=== PATIENT | female | born 1995 | race Caucasian/White ===

== ENCOUNTER 2017-06-12 17:12 | Emergency (ER) | payer BC ==
[~2017-06-12] VITALS: Ht 170.2 cm; Wt 54.5 kg
[~2017-06-12 17:12] MED LIST: CEPH500C5 PO
[2017-06-12 17:17] VITALS: BP 120/86
[2017-06-13] MEDS ORDERED: ACET-3068 PO (13:49)
[2017-06-13] MEDS ORDERED: SULF1TAB49 PO (13:49)
== END 2017-06-12 20:14 | disposition left against medical advice (07) ==
LOC: ER 17:13
DX: R50.9 Fever, unspecified (principal); R07.9 Chest pain, unspecified; Z53.21 Procedure and treatment not carried out due to patient leaving prior to being seen by health care provider

== ENCOUNTER 2017-06-13 10:26 | Emergency (ER) | payer BC ==
[~2017-06-13] VITALS: Ht 170.2 cm; Wt 53.0 kg
[2017-06-13] MEDS ORDERED: normal saline 1000ML IV soln IVB ONE ×2 (11:50)
[2017-06-13] MEDS ORDERED: oxyCODONE IR 5mg (immed. release) tablet PO ONE (11:50)
[2017-06-13] MEDS ORDERED: cefTRIAXone 1g/NS 100ml IVPB 100 ML IV ONE (11:55)
[2017-06-13 12:08] LABS: BASOPHILS % (AUTO) 0.4 % (0-1); EOSINOPHILS # (AUTO) 0.1 X10'3 (0-0.9); EOSINOPHILS % (AUTO) 1.2 % (0-6); HEMATOCRIT 38.8 % (35.0-45.0); HEMOGLOBIN 13.3 g/dl (12.0-16.0); LYMPHOCYTES # (AUTO) 3.1 X10'3 (1.1-4.8); LYMPHOCYTES % (AUTO) 53.2 % (21-51); MEAN CORPUSCULAR HEMOGLOBIN 29.9 PG (27.0-31.0); MEAN CORPUSCULAR HGB CONC 34.3 % (33.0-36.5); MEAN CORPUSCULAR VOLUME 87.3 FL (78-98); MEAN PLATELET VOLUME 7.8 FL (7.4-10.4); MONOCYTES # (AUTO) 0.4 X10'3 (0-0.9); NEUTROPHILS # (AUTO) 2.2 X10'3 (1.8-7.7); NEUTROPHILS % (AUTO) 38.2 % (42-75); PLATELET COUNT 174 X10'3 (140-440); RED BLOOD COUNT 4.45 X10'6 (4.20-5.60); RED CELL DISTRIBUTION WIDTH 15.7 % (11.5-14.5); WHITE BLOOD COUNT 5.8 X10'3 (4.5-11.0)
[2017-06-13 12:21] LABS: ALANINE AMINOTRANSFERASE 20 U/L (12-78); ALBUMIN 3.2 G/DL (3.4-5.0); ALBUMIN/GLOBULIN RATIO 0.8 (1.1-1.5); ALKALINE PHOSPHATASE 50 IU/L (46-116); ANION GAP 5 (8-16); ASPARTATE AMINO TRANSFERASE 14 U/L (10-37); BILIRUBIN,TOTAL 0.3 MG/DL (0.1-1.0); BLOOD UREA NITROGEN 16 MG/DL (7-18); CALCIUM 9.1 MG/DL (8.5-10.1); CHLORIDE 107 MMOL/L (99-107); CREATININE 0.64 MG/DL (0.40-0.90); GLUCOSE 90 MG/DL (70-104); POTASSIUM 3.4 MMOL/L (3.5-5.1); SODIUM 142 MMOL/L (135-145); TOTAL CARBON DIOXIDE 29.8 MMOL/L (24-32); TOTAL PROTEIN 7.2 G/DL (6.4-8.2); eGFR > 90 ML/MIN
[2017-06-13 12:42] LABS: BETA HCG,QUANTITATIVE 2483 mIU/ml
[2017-06-13] MEDS ORDERED: ondansetron/PF 4mg/2ml inj IV ONE (13:15)
[2017-06-13] MEDS ORDERED: SULF1TAB49 PO (13:49)
[2017-06-13] MEDS ORDERED: ACET-3068 PO (13:49)
[2017-06-13 14:14] VITALS: BP 121/68
== END 2017-06-13 14:17 | disposition home or self-care (01) ==
LOC: ER 10:27
DX: O03.9 Complete or unspecified spontaneous abortion without complication (principal); L03.113 Cellulitis of right upper limb; F12.10 Cannabis abuse, uncomplicated; Z98.890 Other specified postprocedural states; Z88.0 Allergy status to penicillin; Z88.8 Allergy status to other drugs, medicaments and biological substances; Z86.14 Personal history of Methicillin resistant Staphylococcus aureus infection
CPT/HCPCS: 36415; 76856; 80053; 84702; 85025; 86900; 86901; 96361; 96365; 96375; 99285; J0696; J2405; J7030

== ENCOUNTER 2017-08-01 21:02 | Emergency (ER) | payer BC ==
[~2017-08-01] VITALS: Ht 170.2 cm; Wt 54.0 kg
[2017-08-01 21:05] VITALS: BP 124/67
[2017-08-01 21:32] LABS: BASOPHILS % (AUTO) 0.3 % (0-1); EOSINOPHILS # (AUTO) 0.1 X10'3 (0-0.9); EOSINOPHILS % (AUTO) 1.4 % (0-6); HEMATOCRIT 39.9 % (35.0-45.0); LYMPHOCYTES # (AUTO) 3.8 X10'3 (1.1-4.8); LYMPHOCYTES % (AUTO) 44.9 % (21-51); MEAN CORPUSCULAR HEMOGLOBIN 31.5 PG (27.0-31.0); MEAN CORPUSCULAR VOLUME 90.1 FL (78-98); MONOCYTES # (AUTO) 0.6 X10'3 (0-0.9); MONOCYTES % (AUTO) 7.3 % (2-12); NEUTROPHILS # (AUTO) 3.8 X10'3 (1.8-7.7); NEUTROPHILS % (AUTO) 46.1 % (42-75); PLATELET COUNT 244 X10'3 (140-440); RED BLOOD COUNT 4.43 X10'6 (4.20-5.60); RED CELL DISTRIBUTION WIDTH 13.4 % (11.5-14.5); WHITE BLOOD COUNT 8.4 X10'3 (4.5-11.0)
[2017-08-01 21:55] LABS: ALANINE AMINOTRANSFERASE 21 U/L (12-78); ALBUMIN 4.2 G/DL (3.4-5.0); ALBUMIN/GLOBULIN RATIO 1.1 (1.1-1.5); ALKALINE PHOSPHATASE 69 IU/L (46-116); ANION GAP 10 (8-16); ASPARTATE AMINO TRANSFERASE 10 U/L (10-37); BILIRUBIN,TOTAL 0.7 MG/DL (0.1-1.0); BLOOD UREA NITROGEN 23 MG/DL (7-18); BUN/CREATININE RATIO 23.5 (6.6-38.0); CALCIUM 9.3 MG/DL (8.5-10.1); CHLORIDE 105 MMOL/L (99-107); CREATININE 0.98 MG/DL (0.40-0.90); ETHANOL < 0.010 GM/DL (0.0-0.010); GLUCOSE 101 MG/DL (70-104); POTASSIUM 3.5 MMOL/L (3.5-5.1); SODIUM 141 MMOL/L (135-145); TOTAL CARBON DIOXIDE 25.6 MMOL/L (24-32); eGFR 70 ML/MIN
[2017-08-01 22:33] LABS: CLARITY,URINE SLIGHTLY CLOUDY (Clear); GLUCOSE, URINE NEGATIVE (Neg); KETONES,URINE TRACE mg/dl (Neg); LEUKOCYTE ESTERASE ,URINE NEGATIVE (Neg); NITRITES, URINE NEGATIVE (Neg); OCCULT BLOOD,URINE TRACE-INTACT (Neg); PROTEIN,URINE 30 mg/dl (Neg); URINE HCG NEGATIVE (NEG)
[2017-08-01 22:36] LABS: COLOR,URINE DARK YELLOW (Yellow); UA COLLECTION TYPE CLN CATCH MIDSTREAM
[2017-08-01 22:40] LABS: BACTERIA,URINE 3+ /HPF (Neg); CAL OXALATE CRYSTALS 1+ /HPF (NEGATIVE); MUCUS STRANDS MANY /LPF (Neg); RBC,URINE 0-2 /HPF (0-2); SQUAMOUS EPITHELIAL CELL,UR MANY /LPF (FEW); WBC,URINE 0-4 /HPF (0-4)
[2017-08-01 22:44] LABS: URINE AMPHETAMINE SCREEN POSITIVE (Neg); URINE BARBITUATE SCREEN NEGATIVE (Neg); URINE BENZODIAZEPINES SCREEN NEGATIVE (Neg); URINE CANNABINOID SCREEN POSITIVE (Neg); URINE COCAINE SCREEN NEGATIVE (Neg); URINE METHADONE SCREEN NEGATIVE (Neg); URINE OPIATE SCREEN NEGATIVE (Neg); URINE PHENCYCLIDINE SCREEN NEGATIVE (Neg)
== END 2017-08-01 22:56 | disposition home or self-care (01) ==
LOC: ER 21:03
DX: B34.9 Viral infection, unspecified (principal); E86.0 Dehydration; F12.10 Cannabis abuse, uncomplicated; F15.10 Other stimulant abuse, uncomplicated; Z86.19 Personal history of other infectious and parasitic diseases; Z88.0 Allergy status to penicillin; Z79.899 Other long term (current) drug therapy
CPT/HCPCS: 36415; 80053; 80305; 80320; 81001; 81025; 84439; 84443; 85025; 99284

== ENCOUNTER 2018-06-15 23:35 | Emergency (ER) | payer BC, MEDICAID ==
[~2018-06-15] VITALS: Ht 170.2 cm; Wt 52.0 kg
[2018-06-15 23:42] VITALS: BP 145/91
== END 2018-06-16 00:27 | disposition left against medical advice (07) ==
LOC: ER 23:36
DX: J20.9 Acute bronchitis, unspecified (principal); F12.90 Cannabis use, unspecified, uncomplicated; Z86.14 Personal history of Methicillin resistant Staphylococcus aureus infection; Z98.890 Other specified postprocedural states; Z88.0 Allergy status to penicillin; Z88.1 Allergy status to other antibiotic agents; Z88.8 Allergy status to other drugs, medicaments and biological substances
CPT/HCPCS: 99281

== ENCOUNTER 2018-06-18 00:21 | Emergency (ER) | payer MEDICAID ==
[~2018-06-18] VITALS: Ht 170.2 cm; Wt 52.3 kg
[2018-06-18] MEDS ORDERED: acetaminophen 325mg tablet PO ONE (00:45)
[2018-06-18] MEDS ORDERED: normal saline 1000ML IV soln IVB ONE (00:45)
[2018-06-18] MEDS ORDERED: ketorolac trometh. 30mg/ml inj. IV ONE (00:45)
[2018-06-18] MEDS ORDERED: ondansetron/PF 4mg/2ml inj IV ONE (00:45)
[2018-06-18 02:03] LABS: ALANINE AMINOTRANSFERASE 21 U/L (12-78); ALBUMIN 3.2 G/DL (3.4-5.0); ALBUMIN/GLOBULIN RATIO 0.9 (1.1-1.5); ALKALINE PHOSPHATASE 58 IU/L (46-116); ANION GAP 11 (8-16); ASPARTATE AMINO TRANSFERASE 18 U/L (10-37); BILIRUBIN,TOTAL 0.1 MG/DL (0.1-1.0); BLOOD UREA NITROGEN 11 MG/DL (7-18); BUN/CREATININE RATIO 15.3 (6.6-38.0); CALCIUM 7.4 MG/DL (8.5-10.1); CHLORIDE 108 MMOL/L (99-107); CREATININE 0.72 MG/DL (0.40-0.90); GLUCOSE 84 MG/DL (70-104); SODIUM 142 MMOL/L (135-145); TOTAL CARBON DIOXIDE 23.2 MMOL/L (24-32); TOTAL PROTEIN 6.7 G/DL (6.4-8.2); eGFR > 90 ML/MIN
[2018-06-18 02:09] LABS: BASOPHILS % (AUTO) 0.5 % (0-1); EOSINOPHILS % (AUTO) 0.4 % (0-6); HEMATOCRIT 35.2 % (35.0-45.0); HEMOGLOBIN 11.9 g/dl (12.0-16.0); LYMPHOCYTES # (AUTO) 1.8 X10'3 (1.1-4.8); MEAN CORPUSCULAR HEMOGLOBIN 30.2 PG (27.0-31.0); MEAN CORPUSCULAR VOLUME 88.9 FL (78-98); MEAN PLATELET VOLUME 8.6 FL (7.4-10.4); MONOCYTES # (AUTO) 0.3 X10'3 (0-0.9); MONOCYTES % (AUTO) 7.6 % (2-12); NEUTROPHILS # (AUTO) 1.6 X10'3 (1.8-7.7); NEUTROPHILS % (AUTO) 43.5 % (42-75); PLATELET COUNT 184 X10'3 (140-440); RED BLOOD COUNT 3.96 X10'6 (4.20-5.60); RED CELL DISTRIBUTION WIDTH 13.1 % (11.5-14.5); WHITE BLOOD COUNT 3.7 X10'3 (4.5-11.0)
[2018-06-18 02:11] LABS: POTASSIUM 2.8 MMOL/L (3.5-5.1)
[2018-06-18 02:36] LABS: URINE HCG NEGATIVE (NEG)
[2018-06-18] MEDS ORDERED: potassium Cl 20 mEq SR tablet PO STA (02:41)
[2018-06-18] MEDS ORDERED: magnesium 2GM in 50ml NS 50 ML IV ONE (02:45)
[2018-06-18] MEDS ORDERED: potassium 10mEq/100ml NS w/LIDOcaine (10mg/bag) IV ONE (02:45)
[2018-06-18 02:58] LABS: CLARITY,URINE CLEAR (Clear); COLOR,URINE YELLOW (Yellow); GLUCOSE, URINE NEGATIVE (Neg); KETONES,URINE TRACE mg/dl (Neg); LEUKOCYTE ESTERASE ,URINE NEGATIVE (Neg); NITRITES, URINE NEGATIVE (Neg); OCCULT BLOOD,URINE NEGATIVE (Neg); PROTEIN,URINE TRACE mg/dl (Neg); UROBILINOGEN,URINE 0.2 E.U/dL (0.2-1.0)
[2018-06-18 03:05] LABS: UA COLLECTION TYPE CLN CATCH MIDSTREAM; URINE AMPHETAMINE SCREEN POSITIVE (Neg); URINE BARBITUATE SCREEN NEGATIVE (Neg); URINE BENZODIAZEPINES SCREEN NEGATIVE (Neg); URINE CANNABINOID SCREEN POSITIVE (Neg); URINE COCAINE SCREEN NEGATIVE (Neg); URINE METHADONE SCREEN NEGATIVE (Neg); URINE OPIATE SCREEN NEGATIVE (Neg); URINE PHENCYCLIDINE SCREEN NEGATIVE (Neg)
[2018-06-18 03:08] LABS: BACTERIA,URINE NONE SEEN /HPF (Neg); CAL OXALATE CRYSTALS 2+ /HPF (NEGATIVE); MUCUS STRANDS MANY /LPF (Neg); RBC,URINE 0-2 /HPF (0-2); SQUAMOUS EPITHELIAL CELL,UR FEW /LPF (FEW); WBC,URINE 0-4 /HPF (0-4)
[2018-06-18] MEDS ORDERED: IBUP-1984 PO (03:18)
[2018-06-18] MEDS ORDERED: POTA20TA19 PO (03:19)
[2018-06-18 04:07] VITALS: BP 104/57
== END 2018-06-18 04:09 | disposition home or self-care (01) ==
LOC: ER 00:21
DX: F15.10 Other stimulant abuse, uncomplicated (principal); B34.9 Viral infection, unspecified; E87.6 Hypokalemia; F12.90 Cannabis use, unspecified, uncomplicated; Z86.19 Personal history of other infectious and parasitic diseases; Z86.14 Personal history of Methicillin resistant Staphylococcus aureus infection; Z98.890 Other specified postprocedural states; Z88.0 Allergy status to penicillin; Z88.1 Allergy status to other antibiotic agents; Z88.8 Allergy status to other drugs, medicaments and biological substances; Z79.899 Other long term (current) drug therapy
CPT/HCPCS: 36415; 71045; 80053; 80305; 81001; 81025; 85025; 87502; 87503; 96361; 96365; 96368; 96375; 99284; J1885; J2405; J3475; J3480; J7030

== ENCOUNTER 2021-10-15 14:39 | Emergency (ER) | payer MEDICAID ==
[~2021-10-15] VITALS: Ht 170.2 cm; Wt 6.1 kg
[2021-10-15 14:46] VITALS: BP 139/91
[2021-10-15 15:35] LABS: BASOPHILS # (AUTO) 0.1 X10'3 (0-0.2); EOSINOPHILS # (AUTO) 0.2 X10'3 (0-0.9); EOSINOPHILS % (AUTO) 2.1 % (0-6); HEMATOCRIT 29.9 % (35.0-45.0); HEMOGLOBIN 9.3 g/dl (12.0-16.0); LYMPHOCYTES % (AUTO) 40.7 % (21-51); MEAN CORPUSCULAR HEMOGLOBIN 21.4 PG (27.0-31.0); MEAN CORPUSCULAR HGB CONC 31.3 g/dL (33.0-36.5); MEAN CORPUSCULAR VOLUME 68.5 FL (78-98); MEAN PLATELET VOLUME 6.9 FL (7.4-10.4); MONOCYTES # (AUTO) 0.7 X10'3 (0-0.9); MONOCYTES % (AUTO) 8.9 % (2-12); NEUTROPHILS # (AUTO) 3.5 X10'3 (1.8-7.7); NEUTROPHILS % (AUTO) 47.3 % (42-75); PLATELET COUNT 498 X10'3 (140-440); RED BLOOD COUNT 4.37 X10'6 (4.20-5.60); RED CELL DISTRIBUTION WIDTH 24.2 % (11.5-14.5); WHITE BLOOD COUNT 7.5 X10'3 (4.5-11.0)
[2021-10-15 15:41] LABS: ALANINE AMINOTRANSFERASE 29 U/L (12-78); ALBUMIN 4.3 G/DL (3.4-5.0); ALKALINE PHOSPHATASE 76 IU/L (46-116); ANION GAP 11 (8-16); ASPARTATE AMINO TRANSFERASE 22 U/L (10-37); BILIRUBIN,TOTAL 0.2 MG/DL (0.1-1.0); BLOOD UREA NITROGEN 19 MG/DL (7-18); BUN/CREATININE RATIO 21.1 (6.6-38.0); CALCIUM 9.9 MG/DL (8.5-10.1); CHLORIDE 102 MMOL/L (99-107); GLUCOSE 92 MG/DL (70-104); SODIUM 138 MMOL/L (135-145); TOTAL CARBON DIOXIDE 25.4 MMOL/L (24-32); TOTAL PROTEIN 8.7 G/DL (6.4-8.2); eGFR 75 ML/MIN
[2021-10-15 16:13] LABS: PLATELET ESTIMATE INCREASED
[2021-10-15 16:14] LABS: ANISOCYTOSIS 3+; HYPOCHROMASIA 2+; MICROCYTOSIS 2+; POLYCHROMASIA FEW
[2021-10-15 16:15] LABS: POIKILOCYTOSIS FEW
== END 2021-10-15 20:36 | disposition left against medical advice (07) ==
LOC: ER 14:40
DX: R79.9 Abnormal finding of blood chemistry, unspecified (principal); Z53.21 Procedure and treatment not carried out due to patient leaving prior to being seen by health care provider
CPT/HCPCS: 36415; 80053; 85008; 85025

== ENCOUNTER 2023-02-07 21:29 | Emergency (ER) | payer MEDICAID ==
[~2023-02-07] VITALS: Ht 170.2 cm; Wt 49.4 kg
[2023-02-07 21:33] VITALS: BP 119/79; RESP 16; TEMP 98.5; O2SAT 100
[2023-02-07] MEDS ORDERED: ondansetron 4mg rapidly disintigrating tab PO ONE (22:20)
[2023-02-07] MEDS ORDERED: clindamycin 150mg capsule PO ONE (22:20)
[2023-02-07] MEDS ORDERED: CLIN150C2 PO (22:21)
[2023-02-07] MEDS ORDERED: ONDA4TAB12 PO (22:28)
[2023-02-07 22:30] LABS: BILIRUBIN,URINE NEGATIVE (Neg); CLARITY,URINE CLOUDY (Clear); COLOR,URINE YELLOW (Yellow); GLUCOSE, URINE NEGATIVE (Neg); KETONES,URINE NEGATIVE (Neg); LEUKOCYTE ESTERASE ,URINE NEGATIVE (Neg); NITRITES, URINE POSITIVE (Neg); OCCULT BLOOD,URINE NEGATIVE (Neg); PROTEIN,URINE NEGATIVE (Neg); UROBILINOGEN,URINE 0.2 E.U/dL (0.2-1.0)
[2023-02-07 22:32] LABS: URINE HCG NEGATIVE (NEG)
[2023-02-07 22:35] LABS: UA COLLECTION TYPE CLN CATCH MIDSTREAM
[2023-02-07 22:36] LABS: SQUAMOUS EPITHELIAL CELL,UR MODERATE /LPF (FEW)
[2023-02-07 22:37] LABS: BACTERIA,URINE 4+ /HPF (Neg)
[2023-02-07 22:39] LABS: AMORPHOUS PHOSPHATES 4+; TRANSITIONAL EPI CELLS,URINE FEW /HPF; WBC,URINE 30-50 /HPF (0-4)
[2023-02-07 22:40] LABS: MUCUS STRANDS FEW /LPF (Neg)
== END 2023-02-07 22:40 | disposition home or self-care (01) ==
LOC: ER 21:30
DX: K08.89 Other specified disorders of teeth and supporting structures (principal); F12.90 Cannabis use, unspecified, uncomplicated; Z88.0 Allergy status to penicillin; Z88.1 Allergy status to other antibiotic agents; Z91.040 Latex allergy status; Z88.8 Allergy status to other drugs, medicaments and biological substances; Z79.2 Long term (current) use of antibiotics; Z79.899 Other long term (current) drug therapy
CPT/HCPCS: 81001; 81025; 87088; 87186; 99283

== ENCOUNTER 2024-03-28 19:46 | Emergency (ER) | payer MEDICAID ==
[~2024-03-28] VITALS: Ht 170.2 cm; Wt 67.5 kg
[~2024-03-28 19:46] MED LIST changes: -CEPH500C5 PO; +ONDA-243 PO
[2024-03-28 20:07] VITALS: BP 130/63; PULSE 80; O2SAT 99
[2024-03-28 20:40] LABS: BASOPHILS # (AUTO) 0.1 X10'3 (0-0.2); BASOPHILS % (AUTO) 0.7 % (0-1); EOSINOPHILS # (AUTO) 0.3 X10'3 (0-0.9); EOSINOPHILS % (AUTO) 3.5 % (0-6); HEMATOCRIT 42.2 % (35.0-45.0); LYMPHOCYTES # (AUTO) 3.1 X10'3 (1.1-4.8); LYMPHOCYTES % (AUTO) 37.4 % (21-51); MEAN CORPUSCULAR HEMOGLOBIN 31.3 PG (27.0-31.0); MEAN CORPUSCULAR HGB CONC 33.2 g/dL (33.0-36.5); MEAN CORPUSCULAR VOLUME 94.5 FL (78-98); MEAN PLATELET VOLUME 7.8 FL (7.4-10.4); MONOCYTES # (AUTO) 0.8 X10'3 (0-0.9); MONOCYTES % (AUTO) 9.1 % (2-12); NEUTROPHILS # (AUTO) 4.1 X10'3 (1.8-7.7); NEUTROPHILS % (AUTO) 49.3 % (42-75); PLATELET COUNT 241 X10'3 (140-440); RED BLOOD COUNT 4.47 X10'6 (4.20-5.60); RED CELL DISTRIBUTION WIDTH 13.4 % (11.5-14.5); WHITE BLOOD COUNT 8.4 X10'3 (4.5-11.0)
[2024-03-28 20:55] LABS: ALANINE AMINOTRANSFERASE 20 U/L (12-78); ALKALINE PHOSPHATASE 52 IU/L (46-116); ANION GAP 9 (8-16); ASPARTATE AMINO TRANSFERASE 14 U/L (10-37); BILIRUBIN,TOTAL 0.3 MG/DL (0.1-1.0); BLOOD UREA NITROGEN 14 MG/DL (7-18); BUN/CREATININE RATIO 18.7 (10.0-20.0); CALCIUM 9.4 MG/DL (8.5-10.1); CHLORIDE 104 MMOL/L (99-107); CREATININE 0.75 MG/DL (0.40-0.90); GLUCOSE 68 MG/DL (70-104); POTASSIUM 3.9 MMOL/L (3.5-5.1); SODIUM 138 MMOL/L (135-145); TOTAL CARBON DIOXIDE 25.5 MMOL/L (24-32); TOTAL PROTEIN 7.9 G/DL (6.4-8.2); eCRCL 107 ML/MIN; eGFR > 90 ML/MIN
[2024-03-28 21:03] LABS: PRO BRAIN NATRIURETIC PEPTIDE < 30 PG/ML (0-125)
[2024-03-28 22:18] VITALS: RESP 16
[2024-03-28 22:50] VITALS: TEMP 98.6
== END 2024-03-28 22:54 | disposition home or self-care (01) ==
LOC: ER 19:47
DX: N64.89 Other specified disorders of breast (principal); N64.52 Nipple discharge; F12.90 Cannabis use, unspecified, uncomplicated; Z88.0 Allergy status to penicillin; Z88.8 Allergy status to other drugs, medicaments and biological substances; Z88.1 Allergy status to other antibiotic agents; Z91.040 Latex allergy status; Z79.899 Other long term (current) drug therapy; Z98.890 Other specified postprocedural states; Z85.41 Personal history of malignant neoplasm of cervix uteri
CPT/HCPCS: 36415; 71045; 80053; 83880; 84484; 85025; 93005; 99285

== ENCOUNTER 2024-08-06 14:04 | Emergency (ER) | payer MEDICAID ==
[~2024-08-06] VITALS: Ht 167.6 cm; Wt 67.8 kg
[2024-08-06 14:42] LABS: BASOPHILS # (AUTO) 0.1 X10'3 (0-0.2); BASOPHILS % (AUTO) 0.6 % (0-1); EOSINOPHILS # (AUTO) 0.1 X10'3 (0-0.9); EOSINOPHILS % (AUTO) 1.1 % (0-6); HEMATOCRIT 41.5 % (35.0-45.0); HEMOGLOBIN 13.7 g/dl (12.0-16.0); LYMPHOCYTES # (AUTO) 4.6 X10'3 (1.1-4.8); LYMPHOCYTES % (AUTO) 41.8 % (21-51); MEAN CORPUSCULAR HGB CONC 33.1 g/dL (33.0-36.5); MEAN CORPUSCULAR VOLUME 90.7 FL (78-98); MEAN PLATELET VOLUME 7.3 FL (7.4-10.4); MONOCYTES # (AUTO) 0.9 X10'3 (0-0.9); MONOCYTES % (AUTO) 8.6 % (2-12); NEUTROPHILS # (AUTO) 5.2 X10'3 (1.8-7.7); NEUTROPHILS % (AUTO) 47.9 % (42-75); PLATELET COUNT 278 X10'3 (140-440); RED BLOOD COUNT 4.58 X10'6 (4.20-5.60); RED CELL DISTRIBUTION WIDTH 13.6 % (11.5-14.5); WHITE BLOOD COUNT 10.9 X10'3 (4.5-11.0)
[2024-08-06 15:01] LABS: ALANINE AMINOTRANSFERASE 22 U/L (12-78); ALBUMIN 4.2 G/DL (3.4-5.0); ALBUMIN/GLOBULIN RATIO 1.1 (1.1-1.5); ALKALINE PHOSPHATASE 66 IU/L (46-116); ANION GAP 9 (8-16); ASPARTATE AMINO TRANSFERASE 14 U/L (10-37); BILIRUBIN,TOTAL 0.3 MG/DL (0.1-1.0); BLOOD UREA NITROGEN 16 MG/DL (7-18); CALCIUM 8.8 MG/DL (8.5-10.1); CHLORIDE 108 MMOL/L (99-107); CREATININE 0.84 MG/DL (0.40-0.90); GLUCOSE 78 MG/DL (70-104); LIPASE 48 U/L (16-77); POTASSIUM 3.7 MMOL/L (3.5-5.1); SODIUM 142 MMOL/L (135-145); TOTAL CARBON DIOXIDE 25.1 MMOL/L (24-32); TOTAL PROTEIN 7.9 G/DL (6.4-8.2); eCRCL 91 ML/MIN; eGFR 79 ML/MIN
[2024-08-06 15:33] LABS: BILIRUBIN,URINE NEGATIVE (Neg); CLARITY,URINE SLIGHTLY CLOUDY (Clear); COLOR,URINE YELLOW (Yellow); GLUCOSE, URINE NEGATIVE (Neg); KETONES,URINE NEGATIVE (Neg); LEUKOCYTE ESTERASE ,URINE NEGATIVE (Neg); NITRITES, URINE NEGATIVE (Neg); OCCULT BLOOD,URINE TRACE-INTACT (Neg); PROTEIN,URINE TRACE mg/dl (Neg); URINE HCG NEGATIVE (NEG); UROBILINOGEN,URINE 0.2 E.U/dL (0.2-1.0)
[2024-08-06 15:43] LABS: UA COLLECTION TYPE CLN CATCH MIDSTREAM
[2024-08-06] MEDS: normal saline 1000ML IV soln IVB ONE (15:56)
[2024-08-06 16:11] LABS: RBC,URINE 0-2 /HPF (0-2)
[2024-08-06 16:12] LABS: BACTERIA,URINE 1+ /HPF (Neg)
[2024-08-06 16:13] LABS: MUCUS STRANDS FEW /LPF (Neg); SQUAMOUS EPITHELIAL CELL,UR FEW /LPF (FEW)
[2024-08-06] MEDS: CefTRIAXone 2gm/D5W 50ml BAG 50 ML IV ONE (16:44)
[2024-08-06] MEDS ORDERED: CEFU250T95 PO (16:56)
[2024-08-06] MEDS: ondansetron/PF 4mg/2ml inj IV ONE (17:28)
[2024-08-06 17:39] VITALS: BP 115/80; PULSE 88; RESP 16; TEMP 98.4; O2SAT 99
== END 2024-08-06 17:48 | disposition home or self-care (01) ==
LOC: ER 14:04
DX: N39.0 Urinary tract infection, site not specified (principal); F12.90 Cannabis use, unspecified, uncomplicated; Z91.040 Latex allergy status; Z88.0 Allergy status to penicillin; Z88.1 Allergy status to other antibiotic agents; Z88.8 Allergy status to other drugs, medicaments and biological substances; Z85.41 Personal history of malignant neoplasm of cervix uteri; Z98.890 Other specified postprocedural states
CPT/HCPCS: 36415; 80053; 81001; 81025; 83690; 85025; 87088; 96361; 96365; 96375; 99285; J0696; J2405; J7030

== ENCOUNTER 2024-10-25 05:43 | Day surgery (SDC) | payer MEDICAID ==
[2024-10-18 13:29] LABS: BASOPHILS # (AUTO) 0.1 X10'3 (0-0.2); BASOPHILS % (AUTO) 0.6 % (0-1); EOSINOPHILS # (AUTO) 0.2 X10'3 (0-0.9); EOSINOPHILS % (AUTO) 2.1 % (0-6); LYMPHOCYTES # (AUTO) 2.3 X10'3 (1.1-4.8); LYMPHOCYTES % (AUTO) 25.8 % (21-51); MEAN CORPUSCULAR HEMOGLOBIN 30.6 PG (27.0-31.0); MEAN CORPUSCULAR HGB CONC 34.1 g/dL (33.0-36.5); MEAN CORPUSCULAR VOLUME 89.6 FL (78-98); MEAN PLATELET VOLUME 7.6 FL (7.4-10.4); MONOCYTES # (AUTO) 0.6 X10'3 (0-0.9); MONOCYTES % (AUTO) 6.2 % (2-12); NEUTROPHILS # (AUTO) 5.9 X10'3 (1.8-7.7); NEUTROPHILS % (AUTO) 65.3 % (42-75); PRE OP HEMATOCRIT 41.3 % (35.0-45.0); PRE OP HEMOGLOBIN 14.1 g/dL (12.0-16.0); PRE OP PLATELET COUNT 286 X10'3 (140-440); RED BLOOD COUNT 4.61 X10'6 (4.20-5.60); RED CELL DISTRIBUTION WIDTH 13.4 % (11.5-14.5)
[2024-10-18 13:41] LABS: ALBUMIN 4.2 G/DL (3.4-5.0); ALBUMIN/GLOBULIN RATIO 1.4 (1.1-1.5); ALKALINE PHOSPHATASE 67 IU/L (46-116); BLOOD UREA NITROGEN 14 MG/DL (7-18); BUN/CREATININE RATIO 14.3 (10.0-20.0); CALCIUM 9.1 MG/DL (8.5-10.1); CHLORIDE 108 MMOL/L (99-107); CREATININE 0.98 MG/DL (0.40-0.90); PRE OP ALT 18 U/L (30-65); PRE OP ANION GAP 11 (8-16); PRE OP AST 11 U/L (10-37); PRE OP BILIRUB, TOTAL 0.3 MG/DL (0.0-1.0); PRE OP GLUCOSE 81 MG/DL (70-104); PRE OP POTASSIUM 3.8 MMOL/L (3.4-5.1); PRE OP SODIUM 144 MMOL/L (135-145); TOTAL CARBON DIOXIDE 25.4 MMOL/L (24-32); TOTAL PROTEIN 7.3 G/DL (6.4-8.2); eGFR 66 ML/MIN
[2024-10-25] VITALS (16 sets, daily range): BP systolic 83–134; BP diastolic 50–90; PULSE 51–74; RESP 9–16; TEMP 96.4; O2SAT 98–100
[~2024-10-25] VITALS: Ht 167.6 cm; Wt 80.5 kg
[~2024-10-25 05:43] MED LIST changes: +ALBU8HFA PO; +BUPR300T53 PO; +CETI10CA PO; +DOCU-171 PO; +ERGO400C PO; +HYDR100C2 PO; +LIT300C PO; +PROC-8 RC; +PROM25TA14 PO; +SUMA20SP8 NS; +TIRZ5PEN3 SUBCUT; +famotidine 20mg tablet PO ONE
[2024-10-25] MEDS: ringers solution, lacted 1,000 ML IV SCH (06:25)
[2024-10-25] MEDS: levoFLOXACIN-Levaquin 500mg/D5 100 ML IV ONE (06:26)
[2024-10-25] MEDS ORDERED: BUPIVAcaine 0.25% w/Epi /PF 30ml vial ONE (07:07)
[2024-10-25] MEDS ORDERED: BUPIVAcaine 2.5mg/ml inj 50ml vial (contains preservative) ONE (07:07)
[2024-10-25] MEDS ORDERED: LIDOcaine 1% 30ml preserv. free vial ONE (07:07)
[2024-10-25] MEDS ORDERED: ondansetron/PF 4mg/2ml inj IV PRN (07:20)
[2024-10-25] MEDS ORDERED: labetalol 20mg/4ml (5mg/ml) syringe IV PRN (07:20)
[2024-10-25] MEDS ORDERED: fentaNYL/PF 50MCG/1 ML 2ML syringe IV PRN ×2 (07:20)
[2024-10-25] MEDS ORDERED: ringers solution, lacted 1,000 ML IV SCH (07:20)
[2024-10-25] MEDS ORDERED: hydrALAZINE 20mg/ml inj. IV PRN (07:20)
[2024-10-25] MEDS ORDERED: morphine 4 MG/ML inj SYRINge IV PRN (07:20)
[2024-10-25] MEDS ORDERED: morphine 2 MG/ML inj. syringe IV PRN (07:20)
[2024-10-25] MEDS ORDERED: fentaNYL/PF 50MCG/1 ML 2ML syringe ONE (07:30)
[2024-10-25] MEDS ORDERED: sevoflurane 250ml liquid IH ONE (07:30)
[2024-10-25] MEDS ORDERED: dexamethasone sod phosphate 4mg/ml inj. ONE (07:31)
[2024-10-25] MEDS ORDERED: MIDAZolam 1 MG/ML 5ML VIAL ONE (07:31)
[2024-10-25] MEDS ORDERED: acetaminophen 1,000mg/100ml IV 100 ML IV ONE (07:31)
[2024-10-25] MEDS ORDERED: LIDOcaine 2% (20mg/ml) 5ml vial ONE (07:31)
[2024-10-25] MEDS ORDERED: propofol inj 20 ML IV ONE (07:31)
[2024-10-25] MEDS ORDERED: ondansetron/PF 4mg/2ml inj ONE (07:31)
[2024-10-25] MEDS ORDERED: ketorolac trometh 30MG/ML vial 30 MG/ML VIAL ONE (08:08)
[2024-10-25] MEDS ORDERED: ketamine 50mg/5ml syringe ONE (08:11)
--- NOTE | 2024-10-25 08:26 | OPERATIVE REPORT ---
Operative Report Providers to ~ Date of Procedure: October 25, 2024 Pre-Operative Diagnosis: Left nipple discharge Post-Operative Diagnosis SAME as PRE-Op Procedure Performed Left major ductal excision Surgeon: Carlo Etienne MD Order Desk Clerk None Anesthesiologist: Sven Harvey Type of Anesthesia: General Findings: Grossly normal tissue Complications None Prosthetics\Implants used: None Estimated Blood Loss: Less than 25 cc Specimen Removed: Left retroareolar tissue Description of Procedure: The patient was identified in the supine position with her left arm extended. She was prepped and draped in the usual sterile fashion. Prior to surgery preoperative antibiotics were administered within 1 hour of the patient's incision. SCDs have been applied. A curvilinear incision was made at the circumareolar line inferiorly flap was raised superiorly undermining the nipple with the LigaSure. The underlying tissue was then excised to a depth and radius of 2 cm with the LigaSure. The specimen was oriented and sent for pathologic study in formalin. The wound was thoroughly irrigated. Hemostasis was obtained. The incision was then closed with interrupted 3-0 Vicryl pop-off for the deep layers and a running 3-0 Stratafix suture for skin The patient was taken to the PAR in stable condition. Estimated blood loss less than 25 cc. Final sponge and needle count was correct x2 Counts repoted as correct: Yes CARLO ETIENNE MD October 25, 2024 08:26
[2024-10-25] MEDS ORDERED: flumazenil 0.1 mg/ml inj. 10mL vial IV ONE (08:42)
[2024-10-25] MEDS: flumazenil 0.1 mg/ml inj. 10mL vial IV ONE (08:43)
== END 2024-10-25 10:54 | disposition home or self-care (01) ==
LOC: PAS 05:43
PROVIDERS: ATTEND Surgery
DX: N64.52 Nipple discharge (principal); F41.9 Anxiety disorder, unspecified; F31.9 Bipolar disorder, unspecified; Z98.890 Other specified postprocedural states; Z90.710 Acquired absence of both cervix and uterus; Z88.0 Allergy status to penicillin; Z88.8 Allergy status to other drugs, medicaments and biological substances; Z79.899 Other long term (current) drug therapy; Z91.040 Latex allergy status; Z87.442 Personal history of urinary calculi
CPT/HCPCS: 19120; 36415; 80053; 82948; 85025; J0131; J1100; J1885; J1956; J2003; J2250; J2405; J2704; J3010; J3490; J7030; J7120; Z7506; Z7512; A4215; A4618; A6449; A7000; J0665